=== PATIENT | male | born 1985 | race Caucasian/White ===

== ENCOUNTER 2024-09-09 13:12 | Outpatient (REF) | payer MEDICARE, MEDICAID, SELFPAY ==
[2024-09-09 13:36] LABS: MANUAL DIFF FLAG NO
[2024-09-09 13:37] LABS: Basophils Absolute Auto 0.1 X10*3/uL (0.0-0.2); Eosinophils Absolute Auto 0.1 X10*3/uL (0.0-0.4); Eosinophils Percent Auto 1.7 % (0-4); Hematocrit 49.3 % (42.0-52.0); Hemoglobin 18.1 g/dl (14.0-18.0); Imm Gran Abs Auto 0.01 X10*3/uL (0.00-0.03); Imm Gran Pct Auto 0.2 % (0.0-0.4); Lymphocytes Absolute Auto 1.7 X10*3/uL (1.2-4.9); Lymphocytes Percent Auto 32.2 % (20-40); Mean Corpuscular HGB Conc 36.7 g/dl (31.0-36.0); Mean Corpuscular Volume 87.3 fL (80.0-98.0); Mean Platelet Volume 9.4 fL (9.4-12.4); Monocytes Absolute Auto 0.4 X10*3/uL (0.1-1.2); Monocytes Percent Auto 8.4 % (2-11); Neutrophils Percent Auto 56.5 % (45-73); Platelet Count 181 X10*3/uL (160-400); Red Blood Count 5.65 X10*6/uL (4.60-5.80); Red Cell Distribution Width 12.4 % (11.0-16.0); White Blood Count 5.3 X10*3/uL (4.8-10.8)
== END 2024-09-09 13:13 | disposition home or self-care (01) ==
LOC: HO.BBR 13:12
PROVIDERS: PCP Family Medicine; Visit Provider Physician Assistant
DX: D75.1 Secondary polycythemia (principal)
CPT/HCPCS: 36415; 85025; 99195